=== PATIENT | female | born 1985 | race African-American/Black ===

== ENCOUNTER 2016-07-13 18:28 | Emergency (ER) | payer OTHER ==
[~2016-07-13] VITALS: Ht 165.1 cm; Wt 77.1 kg
[~2016-07-13 18:28] MED LIST: CYCLOBENZAPRINE10 M1 PO; FLEXERIL 5MG TAB5 MG PO; IBU-6600 MG PO; MOBIC 15MG15 MG PO; MOBIC15 M1 PO
--- NOTE | 2016-07-13 21:15 | ED GI/GU/ABDOMINAL COMPLAINT ---
History of Present Illness General Chief Complaint: General Adult Stated Complaint: PT IS DIZZY, HEADACHES Source: patient Exam Limitations: no limitations Vital Signs & Intake/Output Vital Signs & Intake/Output Vital Signs Date Time Temp Pulse Resp B/P Pulse O2 O2 Flow FiO2 Ox Delivery Rate 07/133 98.9 85 16 116/65 100 Room Air 07/134 Room Air 07/13 1856 98.7 80 18 119/79 100 Room Air Allergies Coded Allergies: MDX - Amoxicillin (AMOXICILLIN) (Severe, HIVES, AIRWAY CLOSES 03/06/15) Reconcile Medications Cyclobenzaprine HCl 10 MG TABLET 1 TAB PO TID PRN MUSCLE RELAXANT MAY CAUSE DROWSINESS Meloxicam (Mobic 15MG) 15 MG TAB 1 TAB PO DAILY PRN PAIN Meloxicam (Mobic) 15 MG TABLET 1 TAB PO DAILY PRN PAIN/INFLAMMATION Triage Note: 31 YO FEMALE TO TRIAGE C/O LOWER ABD PAIN, DIZZINESS/MAI'S, NAUSEA AND SOB. STATES SHE IS CURRENTLY BUT UNSURE HOW FAR ALONG. STATES LAST PERIOD WAS ?APR-MAY. PT STATES SHE HAS APPT WITH DR CASAREZ ON THE OF THIS MONTH BUT HAS NOT SEEN HIM YET. PT SON VAGINAL BLEEDING. SPOKE TO [facility] NURSE SANJU, PER SANJU THEY ARE CALLING THE SAMPLE HAND DOCTOR TO SEE IF PT SHOULD STAY AND BE SEEN IN ER OR GO TO [facility]. WILL CALL BACK. Triage Nurses Notes Reviewed? yes ? Y Is pt currently ? No Onset: Gradual Duration: constant Timing: recent history Severity Numbers: 5 HPI: Patient is a 31-year-old female who is a currently however patient has unknown last menstrual period who states that approximately 2 weeks ago she was evaluated by primary care Dr. Blue in which they confirmed however no ultrasound has been performed. Patient's APPLIANCE REPAIR TECHNICIAN is Dr. Casarez. Patient presents emergency room with a one-day history of dizziness and diaphoresis and chills. Patient denies any CURRENT fevers denies any abdominal pain, vomiting vaginal bleeding vaginal discharge dysuria or hematuria. Patient is tolerant of by mouth intake. Does have nausea Denies any body aches cough sore throat ear pain rash or passes of vaginal tissue Patient does state that last week she had mild abdominal cramping which has completely resolved (BORIS MONSON,BEN) Past History Travel History Traveled to [place] past 21 day No Medical History Any Pertinent Medical History? see below for history Neurological: MIGRAINES EENT: NONE Cardiovascular: NONE Respiratory: NONE Gastrointestinal: NONE Hepatic: NONE Renal: NONE Musculoskeletal: NONE Psychiatric: NONE Endocrine: NONE Blood Disorders: NONE Cancer(s): NONE NEWS PRODUCTION ASSISTANT/Reproductive: NONE Surgical History Surgical History: non-contributory Psychosocial History What is your primary language Lao Tobacco Use: Never used Family History Hx Contributory? No (BEN FERREIRA) Review of Systems Review of Systems Constitutional: Reports: no symptoms. EENTM: Reports: see HPI. Respiratory: Reports: no symptoms. Cardiovascular: Reports: no symptoms. GI: Reports: see HPI. Genitourinary: Reports: no symptoms. Musculoskeletal: Reports: no symptoms. Skin: Reports: no symptoms. Neurological/Psychological: Reports: no symptoms. Hematologic/Endocrine: Reports: no symptoms. Immunologic/Allergic: Reports: no symptoms. All Other Systems: Reviewed and Negative (BEN FERREIRA) Physical Exam Physical Exam General Appearance: no apparent distress, alert, comfortable Gastrointestinal: normal bowel sounds, soft, non-tender, no organomegaly, NO PERITONEAL SIGNS NO REBOUND TENDERNESS Comments: Well-developed well-nourished person in no acute distress HEENT: Normal EENT exam, extraocular motion intact, no nystagmus. Pupils equally round and reactive to light and accommodation. Nose is atraumatic. External auditory canal and Tympanic membranes clear. Pharynx normal. No swelling or edema. Neck: Supple, no lymphadenopathy, normal range of motion without pain or tenderness Back: Nontender, no CVA tenderness. Cardiovascular: Regular rate and rhythms no murmurs rubs or gallops, normal JVP Respiratory: Chest nontender. No respiratory distress.breath sounds clear to auscultation bilaterally Abdomen: Soft, nontender nondistended, no appreciable organomegaly. Normal bowel sounds. No ascites Extremity: No edema, no calf tenderness to palpation, normal and equal pulses. Neuro: Alert oriented x3, motor sensory normal, Skin: No appreciable rash on exposed skin, skin is warm and dry. Psych: Mood and affect is normal, memory and judgment is normal. Core Measures ACS in differential dx? No Severe Sepsis Present: No Septic Shock Present: No (BEN FERREIRA) Progress Differential Diagnosis: AAA, AMI, appendicitis, biliary colic, bowel obstruction , colon cancer, cholecystitis, diverticulitis, ectopic , endometritis, esophageal varices, gastritis, hepatitis, hernia, hemorrhoids, ischemic bowel, inflamm bowel dis, intrauterine , kidney stone, Yesi-Katrina tear, ovarian cyst, ovarian torsion, pancreatitis, PID/cervicitis, peptic ulcer, PUD/ GERD, perforated viscous, SBO, threatened AB, UTI/pyelo Plan of Care: Orders Procedure Date/time Status URINALYSIS 07/13 2115 Complete HUMAN BETA HCG TITRE 07/13 2115 Complete HUMAN BETA HCG SCREEN 07/13 2115 Complete COMPREHENSIVE METABOLIC PANEL 07/13 2115 Complete CBC WITHOUT DIFFERENTIAL 07/13 2115 Complete Laboratory Tests 07/13/162119: Anion Gap 7, Estimated GFR > 60, BUN/Creatinine Ratio 18.3, Glucose 75, Calcium 9.1, Total Bilirubin 0.7, AST 25, ALT 24, Alkaline Phosphatase 53, Total Protein 7.2, Albumin 4.1, Globulin 3.1, Albumin/Globulin Ratio 1.3, Beta HCG, Quant 28958.0, Total Beta HCG POSITIVE, CBC w Diff NO MAN DIFF REQ, RBC 4.09 L, MCV 94.4, MCH 31.8 H, RDW 13.5, MPV 8.1, Gran % 50.4, Lymphocytes % 40.7, Monocytes % 7.6, Eosinophils % 0.6, Basophils % 0.7, Absolute Granulocytes 2.9, Absolute Lymphocytes 2.3, Absolute Monocytes 0.4, Absolute Eosinophils 0, Absolute Basophils 0, PUBS MCHC 33.7, Urine Color YEL, Urine Clarity CLEAR, Urine pH 6.0, Ur Specific [place] 1.015, Urine Protein NEG, Urine Ketones NEG, Urine Nitrite NEG, Urine Bilirubin NEG, Urine Urobilinogen 0.2, Ur Leukocyte Esterase NEG, Ur Microscopic EXAM NOT REQUIRED, Urine Hemoglobin NEG, Urine Glucose NEG Currently patient is in no apparent distress and is afebrile and has unremarkable physical exam findings and no abdominal pain and findings at this time. Urinalysis was unremarkable at work is unremarkable at this time I did not suspect patient have ectopic however and ultrasound was never performed but patient does not have any abdominal pain currently. Patient is able tolerate by mouth Discussed patient with Dr. Regan who agrees with disposition and plan patient was given a prescription of repeat beta Quant in 2 days (BEN FERREIRA) Initial ED EKG: none (BEN FERREIRA) Departure Departure Disposition: HOME OR SELF CARE Condition: Stable Clinical Impression Primary Impression: Dizziness Secondary Impressions: Chills, Nausea, Referrals: SHADE HAMEED,ARIANE Hassan (PCP/Family) Additional Instructions: As discussed begin drinking plenty of water for hydration. If symptoms worsen return to emergency room. Next week follow up with her established APPLIANCE REPAIR TECHNICIAN Dr. Casarez. In 2 days please obtain blood work with the prescription provided to in the emergency room for repeat beta hCG as this will be sent to YOUR OB/ NEWS PRODUCTION ASSISTANT. Departure Forms: Customer Survey General Discharge Information (BEN FERREIRA) PA/RESEARCH DIRECTOR Co-Sign Statement Statement: ED Attending supervision documentation- [X] I saw and evaluated the patient. I have also reviewed all the pertinent lab results and diagnostic results. I agree with the findings and the plan of care as documented in the PA's/RESEARCH DIRECTOR's documentation. [] I have reviewed the ED Record and agree with the PA's/RESEARCH DIRECTOR's documentation. [] Additions or exceptions (if any) to the PAs/RESEARCH DIRECTOR's note and plan are summarized below: [] (TERRY HAMEED,LISA Deutsch)
[2016-07-13 21:39] LABS: ABSOLUTE BASOPHIL COUNT 0 /CUMM (0.0-0.2); ABSOLUTE EOSINOPHIL COUNT 0 /CUMM (0.0-0.7); ABSOLUTE GRANULOCYTE CT 2.9 /CUMM (1.4-6.5); ABSOLUTE LYMPH COUNT 2.3 /CUMM (1.2-3.4); ABSOLUTE MONOCYTE COUNT 0.4 /CUMM (0.10-0.60); BASOPHIL % 0.7 % (0.0-2.0); EOSINOPHIL % 0.6 % (0-5); GRANULOCYTE % 50.4 % (42.2-75.2); HEMATOCRIT 38.6 % (37-47); MEAN CORPUSCULAR HGB 31.8 PG (27.0-31.0); MEAN CORPUSCULAR HGB CONC 33.7 G/DL (33.0-37.0); MEAN CORPUSCULAR VOLUME 94.4 FL (81.0-99.0); MEAN PLATELET VOLUME 8.1 FL (7.4-10.4); PLATELET COUNT 215 /CUMM (130-400); RBC DISTRIBUTION WIDTH 13.5 % (11.5-14.5); RED BLOOD CELL CT 4.09 /CUMM (4.20-5.40); WHITE BLOOD CELL COUNT 5.7 /CUMM (4.8-10.8)
[2016-07-13 22:13] VITALS: BP 116/65
== END 2016-07-13 23:17 ==
LOC: ERH 18:28
PROVIDERS: Physician Assistant
DX: O26.90 Pregnancy related conditions, unspecified, unspecified trimester (principal); R11.0 Nausea; R42 Dizziness and giddiness; R68.83 Chills (without fever)
CPT/HCPCS: 81003; 96360

== ENCOUNTER 2016-08-11 13:36 | Emergency (ER) | payer OTHER ==
[~2016-08-11] VITALS: Ht 166.4 cm; Wt 80.7 kg
--- NOTE | 2016-08-11 14:29 | ED GENERAL ADULT ---
History of Present Illness General Chief Complaint: General Adult Stated Complaint: FEVER SINCE YEST, MAI, LOW ABD PAIN, 10 WEEKS PREG Source: patient, old records Exam Limitations: no limitations Vital Signs & Intake/Output Vital Signs & Intake/Output Vital Signs Date Time Temp Pulse Resp B/P Pulse O2 O2 Flow FiO2 Ox Delivery Rate 08/11 1540 57 18 118/69 100 Room Air 08/11 1433 99 Room Air 08/11 1348 97.6 64 20 102/67 100 Room Air ED Intake and Output 08/12 0000 08/11 1200 Intake Total 1000 Output Total Balance 1000 Intake, IV 1000 Patient 178 lb Weight Allergies Coded Allergies: amoxicillin (Severe, THROAT CLOSES 08/11/16) Reconcile Medications Cyclobenzaprine HCl 10 MG TABLET 1 TAB PO TID PRN MUSCLE RELAXANT MAY CAUSE DROWSINESS Meloxicam (Mobic 15MG) 15 MG TAB 1 TAB PO DAILY PRN PAIN Meloxicam (Mobic) 15 MG TABLET 1 TAB PO DAILY PRN PAIN/INFLAMMATION Triage Note: TRIAGE: PT TO ER C/C RT SIDED ABD PAIN, FEVERS, H/A, BACK ACHE, CONGESTION, SORE THROAT, DIFFICULTY SLEEPING. ONSET LAST NIGHT. -N/V/D. -URINARY S/S. LNBM 2 DAYS AGO. STATES "I FEEL LIKE I'M BURNING UP ON THE INSIDE". AFEBRILE AT TRIAGE, DID NOT CHECK TEMP AT HOME. PT CURRENTLY 11 WEEKS , DUE DATE 03/01/[address] CASAREZ. /M1. DENIES ANY COMPLICATIONS WITH . DENIES ANY VAGINAL BLEEDING OR DISCHARGE. PT PRESENTS TO TRIAGE DRINKING WATER FROM WATER BOTTLE PROVIDED IN WAITING ROOM, ADVISED TO REMAIN NPO UNTIL EVALUATED. SPOKE WITH SHARRI FRIEDMAN IN CBC, PT TO REMAIN IN ER FOR EVAL. Triage Nurses Notes Reviewed? yes : Yes Patient currently breastfeeds: No HPI: Patient is a 31 year old female , approximately 11 weeks confirmed intrauterine by ultrasound, presents complaining of sore throat, headache, chills, subjective fevers and right sided abdominal pain. Chills, fevers, headache, sore throat onset yesterday. right sided abdominal pain onset today. Pain in the abdomen feels like a "soreness in the fat". Patient has not taken any medication for her symptoms. Positive sick contacts at home. Patient has not received an influenza vaccination this year. Denies vaginal bleeding, vomiting, urinary symptoms. (LENORA HERNANDEZ) Past History Travel History Traveled to [place] past 21 day No Medical History Any Pertinent Medical History? see below for history Neurological: MIGRAINES EENT: NONE Cardiovascular: NONE Respiratory: NONE Gastrointestinal: NONE Hepatic: NONE Renal: NONE Musculoskeletal: NONE Psychiatric: NONE Endocrine: NONE Blood Disorders: NONE Cancer(s): NONE MEDICAL PHYSICIST/Reproductive: NONE, , 1 miscarriage, currently 11 weeks Surgical History Surgical History: non-contributory Psychosocial History What is your primary language Slovenian Tobacco Use: Never used ETOH Use: occasional use Illicit Drug Use: denies illicit drug use Family History Hx Contributory? No (LENORA HERNANDEZ) Review of Systems Review of Systems Constitutional: Reports: chills, fever (subjective). EENTM: Reports: nasal congestion, throat pain. Respiratory: Denies: cough, short of breath. Cardiovascular: Denies: chest pain. GI: Reports: abdominal pain. Denies: diarrhea, vomiting. Genitourinary: Reports: no symptoms. Musculoskeletal: Denies: back pain. Skin: Reports: no symptoms. Neurological/Psychological: Reports: no symptoms. Hematologic/Endocrine: Reports: no symptoms. Immunologic/Allergic: Reports: no symptoms. (LENORA HERNANDEZ) Physical Exam Physical Exam General Appearance: well developed/nourished, alert, awake Head: atraumatic, normal appearance Eyes: Bilateral: normal appearance, PERRL, EOMI. Ears, Nose, Throat: normal pharynx, hearing grossly normal, nasal congestion, normal tympanic membranes bilaterally Neck: normal inspection, supple, full range of motion, left anterior cervical lymphadenopathy Respiratory: normal breath sounds, no respiratory distress, lungs clear Cardiovascular: regular rate/rhythm (no appreciable murmur) Gastrointestinal: normal bowel sounds, soft, Mild right lower quadrant tenderness. Negative Carrasco's sign, negative Rovsing's sign Back: normal inspection, normal range of motion Extremities: normal inspection, normal capillary refill, normal range of motion, no edema Neurologic/Psych: no motor/sensory deficits, awake, alert, oriented x 3, normal gait, normal mood/affect Skin: intact, normal color, warm/dry Lymphatic: left anterior cervical lymphadenopathy Core Measures ACS in differential dx? No CVA/TIA Diagnosis: No Severe Sepsis Present: No Septic Shock Present: No (LENORA HERNANDEZ) Progress Differential Diagnoses I considered the following diagnoses in my evaluation of the patient: influenza, strep throat, viral URI, appendicitis, miscarriage, uti Plan of Care: Orders Procedure Date/time Status RAPID VIRAL INFLUENZA A 08/11 1438 Complete THROAT CULTURE W/QUICK STREP 08/11 1438 Active URINALYSIS 08/11 143 Complete COMPREHENSIVE METABOLIC PANEL 08/11 143 Complete CBC WITHOUT DIFFERENTIAL 08/11 143 Complete Laboratory Tests 08/11/16 1543: Urine Color YEL, Urine Clarity CLEAR, Urine pH 6.5, Ur Specific [place] 1.010, Urine Protein NEG, Urine Ketones NEG, Urine Nitrite NEG, Urine Bilirubin NEG, Urine Urobilinogen 0.2, Ur Leukocyte Esterase NEG, Ur Microscopic EXAM NOT REQUIRED, Urine Hemoglobin NEG, Urine Glucose NEG 08/11/16 1500: Anion Gap 8, Estimated GFR > 60, BUN/Creatinine Ratio 16.0, Glucose 72, Calcium 8.9, Total Bilirubin 0.8, AST 24, ALT 26, Alkaline Phosphatase 41, Total Protein 6.7, Albumin 3.9, Globulin 2.8, Albumin/Globulin Ratio 1.4, CBC w Diff NO MAN DIFF REQ, RBC 3.96 L, MCV 93.8, MCH 31.5 H, RDW 13.3, MPV 8.4, Gran % 56.1, Lymphocytes % 34.2, Monocytes % 8.6, Eosinophils % 0.5, Basophils % 0.6, Absolute Granulocytes 3.0, Absolute Lymphocytes 1.8, Absolute Monocytes 0.5, Absolute Eosinophils 0, Absolute Basophils 0, PUBS MCHC 33.6 Microbiology 08/11 1450 NASOPHARYN: Influenza Virus A & B Rapid Smear - COMP 1445: Discussed with Dr. Harrison. Patient evaluated by Dr. Harrison. 1605: Results of labs discussed with patient. Patient afebrile, nontoxic appearing. Low risk using Carrera score for appendicitis. Patient had previous ultrasound confirming IUP with this . Appears stable for discharge and to follow up with her fisher troll line (LENORA HERNANDEZ) Initial ED EKG: none (LENORA HERNANDEZ) Departure Departure Time of Disposition: 8 Disposition: HOME OR SELF CARE Condition: Stable Clinical Impression Primary Impression: Viral syndrome Referrals: SHADE HAMEEDARIANE (PCP/Family) EDNA BAIRES MD Additional Instructions: Tylenol as directed for pain and fevers. Saline nasal spary to aid with congestion. Follow up with your fisher troll line this week if no improvement within 1-2 days. Return to the ER if unable to stay hydrated, any increasing abdominal pain, temperature goes above 100.4, or worsening of symptoms. Departure Forms: Customer Survey General Discharge Information (LENORA HERNANDEZ) PA/PURE PAK MACHINE OPERATOR Co-Sign Statement Statement: ED Attending supervision documentation- [x] I saw and evaluated the patient. I have also reviewed all the pertinent lab results and diagnostic results. I agree with the findings and the plan of care as documented in the PA's/PURE PAK MACHINE OPERATOR's documentation. [x] I have reviewed the ED Record and agree with the PA's/PURE PAK MACHINE OPERATOR's documentation. [] Additions or exceptions (if any) to the PAs/PURE PAK MACHINE OPERATOR's note and plan are summarized below: [] (CALVIN HAMEED,NGHIA) Critical Care Note Critical Care Note Critical Care Time: non-applicable (LENORA HERNANDEZ)
[2016-08-11 15:40] VITALS: BP 118/69
[2016-08-11 15:41] LABS: ABSOLUTE BASOPHIL COUNT 0 /CUMM (0.0-0.2); ABSOLUTE EOSINOPHIL COUNT 0 /CUMM (0.0-0.7); ABSOLUTE LYMPH COUNT 1.8 /CUMM (1.2-3.4); ABSOLUTE MONOCYTE COUNT 0.5 /CUMM (0.10-0.60); BASOPHIL % 0.6 % (0.0-2.0); EOSINOPHIL % 0.5 % (0-5); GRANULOCYTE % 56.1 % (42.2-75.2); HEMATOCRIT 37.1 % (37-47); MEAN CORPUSCULAR HGB 31.5 PG (27.0-31.0); MEAN CORPUSCULAR HGB CONC 33.6 G/DL (33.0-37.0); MEAN CORPUSCULAR VOLUME 93.8 FL (81.0-99.0); MEAN PLATELET VOLUME 8.4 FL (7.4-10.4); PLATELET COUNT 199 /CUMM (130-400); RBC DISTRIBUTION WIDTH 13.3 % (11.5-14.5); RED BLOOD CELL CT 3.96 /CUMM (4.20-5.40); WHITE BLOOD CELL COUNT 5.3 /CUMM (4.8-10.8)
== END 2016-08-11 16:25 ==
LOC: ERH 13:36
PROVIDERS: Physician Assistant
DX: O26.91 Pregnancy related conditions, unspecified, first trimester (principal); B34.9 Viral infection, unspecified
CPT/HCPCS: 81003; 87804; 87804-59; 96360